=== PATIENT | male | born 1940 | race Two or more races ===

== ENCOUNTER 2017-07-26 08:30 | Emergency (ER) | payer BC ==
[~2017-07-26] VITALS: Ht 160 cm; Wt 65.9 kg
[~2017-07-26 08:30] MED LIST: ASPIR LOW81 MG PO; CARDURA4 MG PO; ENFAMIL D-V400 IU/ML PO; METOPROLOL TART25 M1 PO; PRINIVIL20 MG PO; SIMVASTATIN40 M1 PO; SYNTHROID0.025 MG PO
[2017-07-26 09:05] VITALS: Ht 160 cm; Wt 65.9 kg
[2017-07-26 10:53] VITALS: BP 146/73
== END 2017-07-26 10:53 | disposition home or self-care (01) ==
LOC: ED 08:30
DX: B34.9 Viral infection, unspecified (principal); I10 Essential (primary) hypertension; E05.90 Thyrotoxicosis, unspecified without thyrotoxic crisis or storm

== ENCOUNTER 2018-03-07 11:37 | Emergency (ER) | payer BC, OTHER ==
[~2018-03-07] VITALS: Ht 162.6 cm; Wt 66.2 kg
[2018-03-07 11:44] VITALS: Ht 162.6 cm; Wt 66.2 kg
[2018-03-07 14:40] VITALS: BP 162/70
== END 2018-03-07 14:40 | disposition home or self-care (01) ==
LOC: ED 11:37
DX: R10.9 Unspecified abdominal pain (principal); I10 Essential (primary) hypertension

== ENCOUNTER 2019-01-19 13:58 | Emergency (ER) | payer OTHER ==
[~2019-01-19] VITALS: Ht 160 cm; Wt 61.2 kg
[2019-01-19 14:03] VITALS: Ht 160 cm; Wt 61.2 kg
[2019-01-19 15:17] VITALS: BP 174/85
== END 2019-01-19 16:03 | disposition home or self-care (01) ==
LOC: ED 13:58
DX: S01.512A Laceration without foreign body of oral cavity, initial encounter (principal); I10 Essential (primary) hypertension; X58.XXXA Exposure to other specified factors, initial encounter; Y93.89 Activity, other specified; Y92.89 Other specified places as the place of occurrence of the external cause; Y99.8 Other external cause status

== ENCOUNTER 2019-07-15 21:54 | Emergency (ER) | payer OTHER ==
[~2019-07-15] VITALS: Ht 157.5 cm; Wt 60.8 kg
[2019-07-15 22:12] VITALS: Ht 157.5 cm; Wt 60.8 kg
[2019-07-15 23:17] LABS: BASOPHIL % 0.5 % (0-2); PLATELET COUNT 275 x10^3mcL (130-400); RED CELL DISTRIBUTION WIDTH 13.6 % (11.5-14.5)
[2019-07-15 23:20] LABS: CALCIUM 9.1 mg/dL (8.5-10.1); CARBON DIOXIDE 26.9 mmol/L (21-32); CHLORIDE SERUM 98 mmol/L (98-107); CREATININE SERUM 0.8 mg/dL (0.7-1.3); GLUCOSE SERUM 168 mg/dL (74-106); POTASSIUM SERUM 3.3 mmol/L (3.5-5.1); SODIUM SERUM 135 mmol/L (136-145)
[2019-07-16 02:03] VITALS: BP 143/63
== END 2019-07-16 02:03 | disposition home or self-care (01) ==
LOC: ED 21:54
PROVIDERS: Emergency Medicine
DX: R42 Dizziness and giddiness (principal); R11.2 Nausea with vomiting, unspecified; I10 Essential (primary) hypertension; E05.90 Thyrotoxicosis, unspecified without thyrotoxic crisis or storm
CPT/HCPCS: J2405; J8597

== ENCOUNTER 2019-07-16 02:13 | Emergency (ER) | payer OTHER ==
[~2019-07-16] VITALS: Ht 162.6 cm; Wt 61.7 kg
[2019-07-16 02:22] VITALS: Ht 162.6 cm; Wt 61.7 kg
[2019-07-16 09:12] VITALS: BP 150/65
== END 2019-07-16 09:35 | disposition home or self-care (01) ==
LOC: ED 02:13
DX: R42 Dizziness and giddiness (principal); I10 Essential (primary) hypertension; E05.90 Thyrotoxicosis, unspecified without thyrotoxic crisis or storm
CPT/HCPCS: J8597; Q0162

== ENCOUNTER 2019-07-28 11:44 | Emergency (ER) | payer OTHER ==
[~2019-07-28] VITALS: Ht 172.7 cm; Wt 81.6 kg
[2019-07-28 13:39] VITALS: BP 152/93; Ht 172.7 cm; Wt 81.6 kg
[2019-07-28 14:06] LABS: BASOPHIL % 1.3 % (0-2); PLATELET COUNT 274 x10^3mcL (130-400)
[2019-07-28 14:34] LABS: CALCIUM 9.5 mg/dL (8.5-10.1); CARBON DIOXIDE 30.5 mmol/L (21-32); CHLORIDE SERUM 98 mmol/L (98-107); CREATININE SERUM 0.8 mg/dL (0.7-1.3); GLUCOSE SERUM 109 mg/dL (74-106); POTASSIUM SERUM 4.4 mmol/L (3.5-5.1); SODIUM SERUM 135 mmol/L (136-145)
[2019-07-28 14:41] LABS: ALBUMIN 4.2 g/dL (3.4-5.0); ALKALINE PHOSPHATASE 101 U/L (46-116); ALT/SGPT 24 U/L (16-63); AST/SGOT 19 U/L (15-37); BILIRUBIN TOTAL 0.5 mg/dL (0.20-1.00)
== END 2019-07-28 16:14 | disposition home or self-care (01) ==
LOC: ED 11:44
PROVIDERS: Emergency Medicine
DX: R42 Dizziness and giddiness (principal); I10 Essential (primary) hypertension; H93.19 Tinnitus, unspecified ear; E03.9 Hypothyroidism, unspecified; Z98.890 Other specified postprocedural states
CPT/HCPCS: 36415